=== PATIENT | female | born 1940 | race Asian ===

== ENCOUNTER 2016-11-28 09:01 | Day surgery (SDC) | payer OTHER, MEDICARE ==
[2016-11-28] MEDS ORDERED: PROPOFOL 20 ML ONE ×3 (09:52)
[2016-11-28 09:53] VITALS: BMI 20.5
[2016-11-28 10:49] VITALS: TEMP 97.5
[2016-11-28 12:06] VITALS: BP 135/79; PULSE 59
== END 2016-11-28 12:06 | disposition home or self-care (01) ==
LOC: JASU-ENDO 09:01
PROVIDERS: ATTEND Internal Medicine Gastroenterology
PROC: 0DJD8ZZ Inspection of Lower Intestinal Tract, Via Natural or Artificial Opening Endoscopic (ICD-10-PCS; 2016-11-28)
PROC: 0DJ08ZZ Inspection of Upper Intestinal Tract, Via Natural or Artificial Opening Endoscopic (ICD-10-PCS; principal; 2016-11-28 10:00)
DX: D64.9 Anemia, unspecified (principal); K62.1 Rectal polyp; K57.30 Diverticulosis of large intestine without perforation or abscess without bleeding; K64.8 Other hemorrhoids

== ENCOUNTER 2020-05-05 19:33 | Inpatient (IN) | payer OTHER, MEDICARE ==
[2020-05-05] MEDS ORDERED: SODIUM CHLORIDE 1,000 ML IV SCH (20:15)
[2020-05-05 20:27] LABS: BASO % 1.1 % (0-2.0); EOS % 0.4 % (0-4.5); HEMATOCRIT 28.2 % (32.4-45.2); HEMOGLOBIN 9.7 GM/dl (10.7-15.3); LYMPH % 14.5 % (8-40); MCH 37.3 pg (25.7-33.7); MCHC 34.4 g/dl (32.0-36.0); MEAN CELL VOLUME 108.5 fl (80-96); MONO % 12.2 % (3.8-10.2); NEUT % 71.8 % (42.8-82.8); PLATELET COUNT 248 K/MM3 (134-434); WHITE BLOOD COUNT 5.2 K/mm3 (4.0-10.8)
[2020-05-05 20:31] LABS: MEAN PLT VOLUME 5.6 fl (7.5-11.1)
[2020-05-05 20:33] LABS: BILIRUBIN,TOTAL 0.7 mg/dl (0.2-1); CALCIUM 8.1 mg/dl (8.5-10); CREATININE 1.2 mg/dl (0.55-1.3); POTASSIUM 3.3 mmol/L (3.5-5.1); TOT PROT 6.1 g/dl (6.4-8.2)
[2020-05-05] MEDS ORDERED: POTASSIUM CHLORIDE ORAL LIQUID 20 MEQ/15 ML PO ONE (21:05)
[2020-05-05] MEDS ORDERED: POTASSIUM CHLORIDE ORAL LIQUID 20 MEQ/15 ML ONE (21:07)
[2020-05-05 23:53] LABS: EPITHELIAL CELLS FEW /hpf
[2020-05-06 00:54] VITALS: BMI 20.9
[2020-05-06] MEDS ORDERED: SODIUM CHLORIDE 1,000 ML IV SCH (03:15)
[2020-05-06 09:22] LABS: BASO % 1.4 % (0-2.0); EOS % 0.7 % (0-4.5); HEMATOCRIT 24.6 % (32.4-45.2); HEMOGLOBIN 8.4 GM/dl (10.7-15.3); LYMPH % 23.5 % (8-40); MCH 37.7 pg (25.7-33.7); MCHC 34.3 g/dl (32.0-36.0); MONO % 12.6 % (3.8-10.2); NEUT % 61.8 % (42.8-82.8); PLATELET COUNT 215 K/MM3 (134-434); RBC 2.24 M/mm3 (3.60-5.2); WHITE BLOOD COUNT 5.5 K/mm3 (4.0-10.8)
[2020-05-06 09:38] LABS: ALBUMIN 3.4 g/dl (3.4-5.0); BILIRUBIN,TOTAL 0.7 mg/dl (0.2-1); CALCIUM 8.1 mg/dl (8.5-10); CREATININE 0.9 mg/dl (0.55-1.3); MAGNESIUM 2.1 mg/dL (1.8-2.4); POTASSIUM 3.5 mmol/L (3.5-5.1); TOT PROT 5.2 g/dl (6.4-8.2)
[2020-05-06 09:43] LABS: CHOLESTEROL 156 mg/dl (50-200); HDL CHOLESTEROL 71 mg/dl (40-60); LDL CHOLESTEROL (ONLY DFH) 62 mg/dl (5-100); TRIGLYCERIDES 115 mg/dl (0-150)
[2020-05-06] MEDS: FAMOTIDINE 10 MG TABLET PO SCH ×2 (10:08→21:31)
[2020-05-06] MEDS: predniSONE 5 MG TABLET (UD) PO SCH (10:09)
[2020-05-06] MEDS: IBUPROFEN 600 MG TABLET (FP) PO SCH ×2 (10:09→21:29)
[2020-05-06] MEDS: ASPIRIN 81 MG CHEWABLE TABLETS PO SCH (10:09)
[2020-05-06] MEDS: ASCORBIC ACID 500 MG TABLET (FP) PO SCH (10:10)
[2020-05-06] MEDS: HYDROXYCHLOROQUINE SO4 200 MG TABLET (FP) PO SCH ×2 (10:10→21:31)
[2020-05-06] MEDS: amLODIPine BESYLATE 5 MG TABLET (FP) PO SCH (10:10)
[2020-05-06] MEDS ORDERED: BENZOCAINE/MENTH/CETYLPYRD CL 1 EACH LOZENGE MM PRN (14:32)
[2020-05-06] MEDS ORDERED: ATORVASTATIN CA 10 MG TABLET (FP) PO SCH (22:00)
[2020-05-06] MEDS: guaiFENesin/D-METHORPHAN TAB.ER.12H PO SCH (23:46)
[2020-05-07] MEDS ORDERED: SODIUM CHLORIDE 1,000 ML IV SCH (00:45)
[2020-05-07 08:39] LABS: BASO % 0.9 % (0-2.0); EOS % 1.7 % (0-4.5); HEMATOCRIT 25.9 % (32.4-45.2); HEMOGLOBIN 8.7 GM/dl (10.7-15.3); LYMPH % 24.8 % (8-40); MCHC 33.5 g/dl (32.0-36.0); MEAN CELL VOLUME 110.7 fl (80-96); MONO % 13.7 % (3.8-10.2); NEUT % 58.9 % (42.8-82.8); PLATELET COUNT 200 K/MM3 (134-434); RBC 2.34 M/mm3 (3.60-5.2); RDW 12.2 % (11.6-15.6); WHITE BLOOD COUNT 4.8 K/mm3 (4.0-10.8)
[2020-05-07 08:42] LABS: ALBUMIN 3.5 g/dl (3.4-5.0); BILIRUBIN,TOTAL 0.6 mg/dl (0.2-1); CALCIUM 8.5 mg/dl (8.5-10); CREATININE 0.8 mg/dl (0.55-1.3); MAGNESIUM 1.9 mg/dL (1.8-2.4); POTASSIUM 3.6 mmol/L (3.5-5.1); TOT PROT 5.5 g/dl (6.4-8.2)
[2020-05-07 08:45] LABS: ADD RBC MORPHOLOGY YES; MEAN PLT VOLUME 5.8 fl (7.5-11.1)
[2020-05-07] MEDS: ASCORBIC ACID 500 MG TABLET (FP) PO SCH (09:26)
[2020-05-07] MEDS: ASPIRIN 81 MG CHEWABLE TABLETS PO SCH (09:27)
[2020-05-07] MEDS: IBUPROFEN 600 MG TABLET (FP) PO SCH ×2 (09:27→21:32)
[2020-05-07] MEDS: HYDROXYCHLOROQUINE SO4 200 MG TABLET (FP) PO SCH ×2 (09:27→21:34)
[2020-05-07] MEDS: predniSONE 5 MG TABLET (UD) PO SCH (09:27)
[2020-05-07] MEDS: guaiFENesin/D-METHORPHAN TAB.ER.12H PO SCH ×2 (09:28→21:33)
[2020-05-07] MEDS: amLODIPine BESYLATE 5 MG TABLET (FP) PO SCH (09:28)
[2020-05-07] MEDS: FAMOTIDINE 10 MG TABLET PO SCH ×2 (09:28→21:32)
[2020-05-07 09:48] LABS: ANISOCYTOSIS 1+
[2020-05-07 09:54] LABS: MACROCYTOSIS 1+; PLATELET ESTIMATE ADEQUATE
[2020-05-07] MEDS: SODIUM CHLORIDE 1 GM TABLET PO SCH (12:29)
[2020-05-07] MEDS: POLYETHYLENE GLYCOL 3350 119 GM BTL PO SCH (18:46)
[2020-05-07] MEDS: ENOXAPARIN NA (PORCINE) 40 MG/0.4 ML DISP.SYRIN SQ SCH (18:46)
[2020-05-07] MEDS: ATORVASTATIN CA 80 MG TABLET (FP) PO SCH (21:33)
[2020-05-08] MEDS: ASCORBIC ACID 500 MG TABLET (FP) PO SCH (09:45)
[2020-05-08] MEDS: predniSONE 5 MG TABLET (UD) PO SCH (09:46)
[2020-05-08] MEDS: ACETAMINOPHEN 325 MG TABLET (FP) PO PRN ×2 (09:46→21:37)
[2020-05-08] MEDS: ASPIRIN 81 MG CHEWABLE TABLETS PO SCH (09:46)
[2020-05-08] MEDS: HYDROXYCHLOROQUINE SO4 200 MG TABLET (FP) PO SCH (09:46)
[2020-05-08] MEDS: SODIUM CHLORIDE 1 GM TABLET PO SCH (09:46)
[2020-05-08] MEDS: IBUPROFEN 600 MG TABLET (FP) PO SCH ×2 (09:46→21:37)
[2020-05-08] MEDS: amLODIPine BESYLATE 5 MG TABLET (FP) PO SCH (09:46)
[2020-05-08] MEDS: POLYETHYLENE GLYCOL 3350 119 GM BTL PO SCH (09:47)
[2020-05-08] MEDS: FAMOTIDINE 10 MG TABLET PO SCH (09:47)
[2020-05-08] MEDS: ENOXAPARIN NA (PORCINE) 40 MG/0.4 ML DISP.SYRIN SQ SCH (09:47)
[2020-05-08] MEDS: guaiFENesin/D-METHORPHAN TAB.ER.12H PO SCH (09:53)
[2020-05-08 13:09] LABS: CALCIUM 8.3 mg/dl (8.5-10); CREATININE 0.8 mg/dl (0.55-1.3); POTASSIUM 3.2 mmol/L (3.5-5.1)
[2020-05-08 13:21] LABS: BASO % 0.5 % (0-2.0); EOS % 0.7 % (0-4.5); HEMATOCRIT 26.3 % (32.4-45.2); HEMOGLOBIN 9.1 GM/dl (10.7-15.3); LYMPH % 7.3 % (8-40); MCH 37.9 pg (25.7-33.7); MCHC 34.5 g/dl (32.0-36.0); MONO % 7.9 % (3.8-10.2); NEUT % 83.6 % (42.8-82.8); PLATELET COUNT 212 K/MM3 (134-434); RBC 2.39 M/mm3 (3.60-5.2); RDW 12.2 % (11.6-15.6); WHITE BLOOD COUNT 7.2 K/mm3 (4.0-10.8)
[2020-05-08 13:22] LABS: MEAN PLT VOLUME 5.4 fl (7.5-11.1)
[2020-05-08 13:25] LABS: ALBUMIN 3.9 g/dl (3.4-5.0); BILIRUBIN,TOTAL 0.7 mg/dl (0.2-1); CALCIUM 8.3 mg/dl (8.5-10); CREATININE 0.8 mg/dl (0.55-1.3); MAGNESIUM 1.7 mg/dL (1.8-2.4); POTASSIUM 3.2 mmol/L (3.5-5.1)
[2020-05-08] MEDS ORDERED: POTASSIUM CHLORIDE TABS 20 MEQ TABLET.ER (FP) PO ONE (16:50)
[2020-05-08] MEDS: ATORVASTATIN CA 80 MG TABLET (FP) PO SCH (21:36)
[2020-05-09] MEDS: guaiFENesin/D-METHORPHAN TAB.ER.12H PO SCH ×2 (02:36→11:40)
[2020-05-09] MEDS: HYDROXYCHLOROQUINE SO4 200 MG TABLET (FP) PO SCH ×2 (02:36→11:38)
[2020-05-09 07:52] LABS: BASO % 1.1 % (0-2.0); EOS % 1.4 % (0-4.5); HEMATOCRIT 24.1 % (32.4-45.2); HEMOGLOBIN 8.3 GM/dl (10.7-15.3); LYMPH % 27.1 % (8-40); MCH 37.5 pg (25.7-33.7); MCHC 34.2 g/dl (32.0-36.0); MEAN CELL VOLUME 109.6 fl (80-96); MONO % 16.3 % (3.8-10.2); NEUT % 54.1 % (42.8-82.8); PLATELET COUNT 207 K/MM3 (134-434); RDW 12.1 % (11.6-15.6); WHITE BLOOD COUNT 4.5 K/mm3 (4.0-10.8)
[2020-05-09 07:54] LABS: MEAN PLT VOLUME 5.6 fl (7.5-11.1)
[2020-05-09 08:07] LABS: ALBUMIN 3.4 g/dl (3.4-5.0); BILIRUBIN,TOTAL 0.6 mg/dl (0.2-1); CALCIUM 8.7 mg/dl (8.5-10); CREATININE 0.9 mg/dl (0.55-1.3); MAGNESIUM 1.6 mg/dL (1.8-2.4); POTASSIUM 4.6 mmol/L (3.5-5.1); TOT PROT 5.4 g/dl (6.4-8.2)
[2020-05-09] MEDS ORDERED: MAGNESIUM SULF 50% (8.12 MEQ/2 ML-1 GM VIAL) IVPB ONE (08:22)
[2020-05-09] MEDS ORDERED: MAGNESIUM SULFATE IN WATER 2 GM/50 ML IVPB IVPB ONE (08:30)
[2020-05-09] MEDS ORDERED: FAMOTIDINE 10 MG TABLET PO SCH (10:00)
[2020-05-09 10:11] VITALS: BP 153/57; PULSE 100; TEMP 98.1
[2020-05-09] MEDS ORDERED: MAGNESIUM OXIDE 400 MG TABLET (FP) PO ONE (11:00)
[2020-05-09] MEDS: ASPIRIN 81 MG CHEWABLE TABLETS PO SCH (11:38)
[2020-05-09] MEDS: IBUPROFEN 600 MG TABLET (FP) PO SCH (11:38)
[2020-05-09] MEDS: predniSONE 5 MG TABLET (UD) PO SCH (11:38)
[2020-05-09] MEDS: amLODIPine BESYLATE 5 MG TABLET (FP) PO SCH (11:38)
[2020-05-09] MEDS: ASCORBIC ACID 500 MG TABLET (FP) PO SCH (11:39)
[2020-05-09] MEDS: ENOXAPARIN NA (PORCINE) 40 MG/0.4 ML DISP.SYRIN SQ SCH (11:39)
[2020-05-09] MEDS: SODIUM CHLORIDE 1 GM TABLET PO SCH (11:39)
[2020-05-09] MEDS: ACETAMINOPHEN 325 MG TABLET (FP) PO PRN (11:40)
[2020-05-09] MEDS: POLYETHYLENE GLYCOL 3350 119 GM BTL PO SCH (11:40)
[2020-05-09] MEDS ORDERED: SODIUM CHLORIDE 1 GM TABLET PO SCH (22:00)
== END 2020-05-09 15:16 | disposition home or self-care (01) | DRG 641 ==
LOC: FER 19:33 → FM/S 23:54 → UNDOADMIN 23:54
PROVIDERS: ADMIT Internal Medicine; ATTEND Nurse Practitioner Acute Care
DX: E87.0 Hyperosmolality and hypernatremia (principal); I24.8 Other forms of acute ischemic heart disease; I50.32 Chronic diastolic (congestive) heart failure; I10 Essential (primary) hypertension; E78.5 Hyperlipidemia, unspecified; M06.9 Rheumatoid arthritis, unspecified; D64.9 Anemia, unspecified; I25.10 Atherosclerotic heart disease of native coronary artery without angina pectoris; I65.23 Occlusion and stenosis of bilateral carotid arteries; R26.9 Unspecified abnormalities of gait and mobility; T50.2X5A Adverse effect of carbonic-anhydrase inhibitors, benzothiadiazides and other diuretics, initial encounter; W19.XXXA Unspecified fall, initial encounter
CPT/HCPCS: 36415; 70450-TC; 70544-TC; 70547-TC; 70551-TC; 71045-TC-FY; 80048; 80053; 80061; 81003; 81015; 82550; 82553; 82607; 82728; 82747; 83540; 83550; 83735; 84295; 84300; 84484; 84540; 85014; 85025; 93005; 93880-TC; 97116-GP; 99285-25; C9803; U0003

== ENCOUNTER 2022-09-08 15:24 | Emergency (ER) | payer OTHER, MEDICARE ==
[2022-09-08 15:50] VITALS: BP 156/84; PULSE 68; RESP 18; TEMP 98.5; BMI 20.4
[2022-09-08] MEDS ORDERED: ACETAMINOPHEN 325 MG TABLET (FP) PO ONE (15:59)
== END 2022-09-08 17:15 | disposition left against medical advice (07) ==
LOC: FER 15:24
DX: S00.93XA Contusion of unspecified part of head, initial encounter (principal); M25.642 Stiffness of left hand, not elsewhere classified; M43.6 Torticollis; W01.0XXA Fall on same level from slipping, tripping and stumbling without subsequent striking against object, initial encounter; Y93.01 Activity, walking, marching and hiking; Y92.9 Unspecified place or not applicable
CPT/HCPCS: 70450-TC; 72125-TC; 73502-TC-LT-FY; 99284-25

== ENCOUNTER 2022-10-12 20:17 | Inpatient (IN) | payer OTHER, MEDICARE ==
[2022-10-12] MEDS ORDERED: ONDANSETRON 4 MG/2 ML VIAL IVPUSH ONE (20:32)
[2022-10-12] MEDS ORDERED: SODIUM CHLORIDE 1,000 ML IV SCH (20:45)
[2022-10-12] MEDS ORDERED: ONDANSETRON 4 MG/2 ML VIAL ONE (20:59)
[2022-10-12 21:09] LABS: HEMATOCRIT 32.7 % (32.4-45.2); HEMOGLOBIN 11.2 G/dL (10.7-15.3); MCH 39.7 pg (25.7-33.7); MCHC 34.4 g/dl (32.0-36.0); MEAN CELL VOLUME 115.7 fl (80-96); MEAN PLT VOLUME 6.2 fl (7.5-11.1); PLATELET COUNT 147.2 10^3/uL (134-434); RBC 2.83 10^6/uL (3.60-5.2); RDW 13.3 % (11.6-15.6); WHITE BLOOD COUNT 7.2 10^3/uL (4.0-10.8)
[2022-10-12 21:25] LABS: ALBUMIN 3.8 g/dl (3.4-5.0); BLOOD UREA NITROGEN 58.6 mg/dl (7-18); CALCIUM 9.1 mg/dl (8.5-10.1); CREATININE 1.4 mg/dl (0.6-1.3); MAGNESIUM 2.2 mg/dL (1.8-2.4); POTASSIUM 3.7 mmol/L (3.5-5.1); SGOT/AST 22.9 U/L (15-37); SGPT/ALT 20.1 U/L (7-52); TOT PROT 5.9 g/dl (6.4-8.2)
[2022-10-12] MEDS ORDERED: morphine CARPU-JECT 2 MG/1 ML DISP.SYRIN IVPUSH ONE (23:24)
[2022-10-12] MEDS ORDERED: morphine SULFATE 4 MG/ML VIAL ONE (23:29)
[2022-10-12] MEDS ORDERED: ACETAMINOPHEN 1000 MG/100 ML BAG IVPB ONE (23:39)
[2022-10-13 01:09] LABS: EPI CELLS >36 /uL (0-25.1); HYALINE CASTS 1 /uL (0-3.1); PH,URINE >= 9.0 (5.0-8.0); URINE APPEARANCE CLOUDY; URINE BACTERIA 3604 /uL (0-1359); URINE BILIRUBIN NEGATIVE (NEGATIVE); URINE COLOR YELLOW; URINE GLUCOSE (UA) NEGATIVE (NEGATIVE); URINE KETONE NEGATIVE (NEGATIVE); URINE LEUK ESTERASE 2+ (NEGATIVE); URINE NITRITE POSITIVE (NEGATIVE); URINE PROTEIN 1+ (NEGATIVE); URINE RBC 20 /uL (0-23.9); URINE UROBILINOGEN 0.2 mg/dL (0.2-1.0); URINE WBC 27 /uL (0-25.8)
[2022-10-13] MEDS ORDERED: CEFTRIAXONE 1,000 MG in DEXTROSE 5%-WATER - 50 ML IVPB ONE (02:36)
[2022-10-13] MEDS ORDERED: cefTRIAXone SODIUM 1 GM VIAL ONE (02:37)
[2022-10-13] MEDS ORDERED: ONDANSETRON 4 MG/2 ML VIAL IVPUSH PRN (03:00)
[2022-10-13] MEDS ORDERED: ACETAMINOPHEN 1000 MG/100 ML BAG IVPB PRN ×2 (07:16→07:29)
[2022-10-13 09:32] LABS: ALBUMIN 3.3 g/dl (3.4-5.0); BASO % 0.5 % (0-2.0); BLOOD UREA NITROGEN 50.5 mg/dl (7-18); CALCIUM 8.4 mg/dl (8.5-10.1); CREATININE 1.3 mg/dl (0.6-1.3); EOS % 0.5 % (0-4.5); HEMOGLOBIN 9.6 GM/dL (10.7-15.3); LYMPH % 18.3 % (8-40); MCH 38.5 pg (25.7-33.7); MCHC 34.1 g/dl (32.0-36.0); MEAN CELL VOLUME 112.7 fl (80-96); MEAN PLT VOLUME 6.2 fl (7.5-11.1); MONO % 10.5 % (3.8-10.2); NEUT % 70.2 % (42.8-82.8); PHOSPHOROUS 3.91 (2.5-4.9); PLATELET COUNT 151 10^3/uL (134-434); POTASSIUM 3.6 mmol/L (3.5-5.1); RBC 2.49 M/mm3 (3.60-5.2); RDW 13.3 % (11.6-15.6); SGOT/AST 20.7 U/L (15-37); SGPT/ALT 18.2 U/L (7-52); TOT PROT 5.1 g/dl (6.4-8.2); WHITE BLOOD COUNT 7.2 K/mm3 (4.0-10.0)
[2022-10-13 12:08] LABS: BILIRUBIN,TOTAL 0.7 mg/dL (0.2-1)
[2022-10-13 12:15] LABS: ANISOCYTOSIS 3+; MACROCYTOSIS 3+
[2022-10-13] MEDS: SODIUM BICARBONATE 650 MG TABLET PO SCH (12:59)
[2022-10-13] MEDS: SODIUM CHLORIDE 1,000 ML IV SCH (14:30)
[2022-10-14 09:19] LABS: ALBUMIN 3.6 g/dl (3.4-5.0); BLOOD UREA NITROGEN 34.3 mg/dl (7-18); CALCIUM 8.9 mg/dl (8.5-10.1); CREATININE 1.1 mg/dl (0.6-1.3); MAGNESIUM 1.8 mg/dL (1.8-2.4); PHOSPHOROUS 3.31 (2.5-4.9); POTASSIUM 3.2 mmol/L (3.5-5.1); SGOT/AST 32.8 U/L (15-37); SGPT/ALT 19.3 U/L (7-52); TOT PROT 5.6 g/dl (6.4-8.2)
[2022-10-14] MEDS: SODIUM BICARBONATE 650 MG TABLET PO SCH (09:36)
[2022-10-14] MEDS ORDERED: POTASSIUM CHLORIDE TABS 10 MEQ TABLET.ER (FP) PO ONE (10:00)
[2022-10-14] MEDS: CEFTRIAXONE 1 GM in DEXTROSE 5%-WATER - 50 ML IVPB SCH (11:14)
[2022-10-14] MEDS: PANTOPRAZOLE SODIUM 40 MG VIAL IVPUSH SCH (11:16)
[2022-10-14 12:17] LABS: BILIRUBIN,TOTAL 0.8 mg/dL (0.2-1)
[2022-10-14] MEDS: SODIUM CHLORIDE 1,000 ML IV SCH (15:54)
[2022-10-14 22:08] LABS: IG G QN IMMUNOGLOBULIN 841 mg/dL (586-1602); IGG SUBCLASS 1 568 mg/dL (248-810); IGG SUBCLASS 2 92 mg/dL (130-555); IGG SUBCLASS 3 29 mg/dL (15-102)
[2022-10-15] MEDS: CEFTRIAXONE 1 GM in DEXTROSE 5%-WATER - 50 ML IVPB SCH (09:13)
[2022-10-15] MEDS: SODIUM BICARBONATE 650 MG TABLET PO SCH (09:14)
[2022-10-15] MEDS: PANTOPRAZOLE SODIUM 40 MG VIAL IVPUSH SCH (09:14)
[2022-10-15 09:20] LABS: BASO % 0.4 % (0-2.0); EOS % 1.4 % (0-4.5); HEMATOCRIT 24.9 % (32.4-45.2); HEMOGLOBIN 8.6 GM/dL (10.7-15.3); LYMPH % 18.2 % (8-40); MCH 38.1 pg (25.7-33.7); MCHC 34.4 g/dl (32.0-36.0); MEAN PLT VOLUME 6.4 fl (7.5-11.1); MONO % 13.4 % (3.8-10.2); NEUT % 66.6 % (42.8-82.8); PLATELET COUNT 121 10^3/uL (134-434); RBC 2.24 M/mm3 (3.60-5.2); RDW 12.8 % (11.6-15.6); WHITE BLOOD COUNT 6.1 K/mm3 (4.0-10.0)
[2022-10-15 09:27] LABS: ALBUMIN 2.9 g/dl (3.4-5.0); ALK PHOS 40 U/L (45-117); ANION GAP 10 MMOL/L (8-16); BLOOD UREA NITROGEN 21.8 mg/dl (7-18); CALCIUM 8.4 mg/dl (8.5-10.1); CHLORIDE 108 mmol/L (98-107); CO2 17 mmol/L (21-32); CREATININE 0.9 mg/dl (0.6-1.3); GLUCOSE,RANDOM 49 mg/dl (74-106); POTASSIUM 3.4 mmol/L (3.5-5.1); SGOT/AST 33.4 U/L (15-37); SGPT/ALT 16.6 U/L (7-52); SODIUM 135 mmol/L (136-145); TOT PROT 4.6 g/dl (6.4-8.2)
[2022-10-15 09:57] LABS: BILIRUBIN,TOTAL 0.8 mg/dL (0.2-1)
[2022-10-15] MEDS ORDERED: POTASSIUM CHLORIDE TABS 10 MEQ TABLET.ER (FP) PO ONE (10:00)
[2022-10-16 11:34] LABS: HEMATOCRIT 29.9 % (32.4-45.2); HEMOGLOBIN 10.3 G/dL (10.7-15.3); MCH 39.8 pg (25.7-33.7); MCHC 34.5 g/dl (32.0-36.0); MEAN CELL VOLUME 115.3 fl (80-96); MEAN PLT VOLUME 6.2 fl (7.5-11.1); PLATELET COUNT 122.7 10^3/uL (134-434); RBC 2.59 10^6/uL (3.60-5.2); RDW 12.7 % (11.6-15.6); WHITE BLOOD COUNT 5.1 10^3/uL (4.0-10.8)
[2022-10-16 11:42] LABS: ALBUMIN 3.5 g/dl (3.4-5.0); BLOOD UREA NITROGEN 18.5 mg/dl (7-18); CALCIUM 9.2 mg/dl (8.5-10.1); POTASSIUM 3.9 mmol/L (3.5-5.1); SGOT/AST 35.4 U/L (15-37); SGPT/ALT 21.1 U/L (7-52); TOT PROT 5.7 g/dl (6.4-8.2)
[2022-10-16] MEDS: SODIUM BICARBONATE 650 MG TABLET PO SCH (11:54)
[2022-10-16] MEDS: PANTOPRAZOLE 40 MG TABLET PO SCH (11:54)
[2022-10-16] MEDS: CEPHALEXIN MONOHYDRATE 500 MG CAPSULE (UD) PO SCH ×2 (11:55→22:09)
[2022-10-16 14:07] LABS: BILIRUBIN,TOTAL 0.8 mg/dL (0.2-1)
[2022-10-16] MEDS: PANTOPRAZOLE SODIUM 40 MG VIAL IVPUSH SCH (18:48)
[2022-10-16] MEDS: CEFTRIAXONE 1 GM in DEXTROSE 5%-WATER - 50 ML IVPB SCH (18:48)
[2022-10-16] MEDS ORDERED: COSYNTROPIN 0.25 MG VIAL IVPUSH ONE (19:45)
[2022-10-16] MEDS: HYDROCORTISONE SOD SUCCINATE 100 MG/2 ML VIAL IVPB SCH (22:09)
[2022-10-17] MEDS ORDERED: PANTOPRAZOLE 40 MG TABLET PO SCH (10:00)
[2022-10-17] MEDS ORDERED: predniSONE 5 MG TABLET (UD) PO SCH (10:00)
[2022-10-17] MEDS: PANTOPRAZOLE 40 MG TABLET PO SCH (10:42)
[2022-10-17] MEDS: SODIUM BICARBONATE 650 MG TABLET PO SCH (10:42)
[2022-10-17] MEDS: CEPHALEXIN MONOHYDRATE 500 MG CAPSULE (UD) PO SCH ×2 (10:42→22:25)
[2022-10-17] MEDS: HYDROCORTISONE SOD SUCCINATE 100 MG/2 ML VIAL IVPB SCH ×2 (10:42→23:10)
[2022-10-17 13:42] LABS: ALBUMIN 3.5 g/dl (3.4-5.0); BLOOD UREA NITROGEN 28.3 mg/dl (7-18); CALCIUM 8.9 mg/dl (8.5-10.1); CREATININE 1.1 mg/dl (0.6-1.3); POTASSIUM 4.9 mmol/L (3.5-5.1); SGOT/AST 30.5 U/L (15-37); SGPT/ALT 19.9 U/L (7-52); TOT PROT 5.8 g/dl (6.4-8.2)
[2022-10-17 15:56] LABS: HEMATOCRIT 31.7 % (32.4-45.2); MCH 38.5 pg (25.7-33.7); MCHC 34.6 g/dl (32.0-36.0); MEAN CELL VOLUME 111.1 fl (80-96); MEAN PLT VOLUME 6.8 fl (7.5-11.1); PLATELET COUNT 154 10^3/uL (134-434); RBC 2.85 M/mm3 (3.60-5.2); RDW 12.9 % (11.6-15.6); WHITE BLOOD COUNT 5.5 K/mm3 (4.0-10.0)
[2022-10-18] MEDS: HYDROCORTISONE SOD SUCCINATE 100 MG/2 ML VIAL IVPB SCH ×2 (10:07→21:26)
[2022-10-18] MEDS: SODIUM BICARBONATE 650 MG TABLET PO SCH ×3 (10:08→21:26)
[2022-10-18] MEDS: PANTOPRAZOLE 40 MG TABLET PO SCH (10:08)
[2022-10-18] MEDS: CEPHALEXIN MONOHYDRATE 500 MG CAPSULE (UD) PO SCH ×2 (10:08→21:26)
[2022-10-18 11:19] LABS: BILIRUBIN,TOTAL 0.7 mg/dL (0.2-1)
[2022-10-18] MEDS: SODIUM CHLORIDE 1 GM TABLET PO SCH (16:23)
[2022-10-19 09:46] LABS: ALBUMIN 3.1 g/dl (3.4-5.0); BLOOD UREA NITROGEN 38.4 mg/dl (7-18); CALCIUM 8.6 mg/dl (8.5-10.1); CREATININE 1.4 mg/dl (0.6-1.3); POTASSIUM 3.6 mmol/L (3.5-5.1); SGOT/AST 24.4 U/L (15-37)
[2022-10-19] MEDS: SODIUM CHLORIDE 1 GM TABLET PO SCH (09:46)
[2022-10-19] MEDS: PANTOPRAZOLE 40 MG TABLET PO SCH (09:46)
[2022-10-19] MEDS: SODIUM BICARBONATE 650 MG TABLET PO SCH ×2 (09:46→21:37)
[2022-10-19] MEDS: CEPHALEXIN MONOHYDRATE 500 MG CAPSULE (UD) PO SCH ×2 (09:46→21:37)
[2022-10-19] MEDS: HYDROCORTISONE SOD SUCCINATE 100 MG/2 ML VIAL IVPB SCH (09:46)
[2022-10-19 10:17] LABS: HEMATOCRIT 22.5 % (32.4-45.2); HEMOGLOBIN 7.9 GM/dL (10.7-15.3); LYMPH % 6.6 % (8-40); MCHC 35.2 g/dl (32.0-36.0); MEAN CELL VOLUME 108.1 fl (80-96); MEAN PLT VOLUME 6.8 fl (7.5-11.1); MONO % 4.5 % (3.8-10.2); NEUT % 88.9 % (42.8-82.8); PLATELET COUNT 157 10^3/uL (134-434); RBC 2.08 M/mm3 (3.60-5.2); RDW 12.6 % (11.6-15.6); WHITE BLOOD COUNT 5.8 K/mm3 (4.0-10.0)
[2022-10-19 10:23] LABS: BILIRUBIN,TOTAL 0.3 mg/dL (0.2-1)
[2022-10-19 11:17] LABS: ANISOCYTOSIS 2+; MACROCYTOSIS 2+; OVALOCYTE 1+
[2022-10-20] MEDS: PANTOPRAZOLE 40 MG TABLET PO SCH (09:10)
[2022-10-20] MEDS: CEPHALEXIN MONOHYDRATE 500 MG CAPSULE (UD) PO SCH ×2 (09:10→21:11)
[2022-10-20] MEDS: SODIUM CHLORIDE 1 GM TABLET PO SCH (09:11)
[2022-10-20] MEDS: SODIUM BICARBONATE 650 MG TABLET PO SCH (09:11)
[2022-10-20] MEDS ORDERED: predniSONE 5 MG TABLET (UD) PO SCH (10:00)
[2022-10-20 10:28] LABS: ALBUMIN 3.2 g/dl (3.4-5.0); CALCIUM 8.8 mg/dl (8.5-10.1); CREATININE 1.4 mg/dl (0.6-1.3); POTASSIUM 3.9 mmol/L (3.5-5.1); SGOT/AST 23.4 U/L (15-37); SGPT/ALT 22.7 U/L (7-52); TOT PROT 5.3 g/dl (6.4-8.2)
[2022-10-20 11:45] LABS: BASO % 0.1 % (0-2.0); EOS % 0.1 % (0-4.5); HEMATOCRIT 24.7 % (32.4-45.2); HEMOGLOBIN 8.5 GM/dL (10.7-15.3); LYMPH % 14.4 % (8-40); MCH 37.5 pg (25.7-33.7); MCHC 34.4 g/dl (32.0-36.0); MEAN CELL VOLUME 109.1 fl (80-96); MEAN PLT VOLUME 6.7 fl (7.5-11.1); MONO % 10.9 % (3.8-10.2); NEUT % 74.5 % (42.8-82.8); PLATELET COUNT 175 10^3/uL (134-434); RBC 2.26 M/mm3 (3.60-5.2); RDW 12.8 % (11.6-15.6); WHITE BLOOD COUNT 5.9 K/mm3 (4.0-10.0)
[2022-10-20 11:56] LABS: BILIRUBIN,TOTAL 0.4 mg/dL (0.2-1)
[2022-10-20 12:44] LABS: CHOLESTEROL 149 mg/dl (50-200); HDL CHOLESTEROL 33 mg/dl (40-60); LDL CHOLESTEROL (ONLY DFH) 97 mg/dl (5-100)
[2022-10-21 08:03] LABS: CALCIUM 8.5 mg/dl (8.5-10.1); CREATININE 1.4 mg/dl (0.6-1.3); POTASSIUM 3.5 mmol/L (3.5-5.1); SGOT/AST 28.2 U/L (15-37); SGPT/ALT 34.2 U/L (7-52); TOT PROT 4.9 g/dl (6.4-8.2)
[2022-10-21] MEDS: CEPHALEXIN MONOHYDRATE 500 MG CAPSULE (UD) PO SCH ×2 (09:10→21:51)
[2022-10-21] MEDS: predniSONE 10 MG TABLET (UD) PO SCH (09:10)
[2022-10-21] MEDS: SODIUM CHLORIDE 1 GM TABLET PO SCH (09:11)
[2022-10-21] MEDS: PANTOPRAZOLE 40 MG TABLET PO SCH (09:12)
[2022-10-21 10:25] LABS: BILIRUBIN,TOTAL 0.3 mg/dL (0.2-1)
[2022-10-21 11:18] LABS: BASO % 0.2 % (0-2.0); EOS % 0.8 % (0-4.5); HEMOGLOBIN 8.3 GM/dL (10.7-15.3); LYMPH % 21.8 % (8-40); MCH 37.8 pg (25.7-33.7); MCHC 34.8 g/dl (32.0-36.0); MEAN CELL VOLUME 108.6 fl (80-96); MEAN PLT VOLUME 6.6 fl (7.5-11.1); MONO % 12.7 % (3.8-10.2); NEUT % 64.5 % (42.8-82.8); PLATELET COUNT 189 10^3/uL (134-434); RBC 2.21 M/mm3 (3.60-5.2); RDW 12.3 % (11.6-15.6); WHITE BLOOD COUNT 5.1 K/mm3 (4.0-10.0)
[2022-10-21 16:04] VITALS: BMI 20.9
[2022-10-21] MEDS ORDERED: ATORVASTATIN CA 10 MG TABLET (FP) PO SCH (22:00)
[2022-10-22 00:15] VITALS: RESP 18
[2022-10-22] MEDS ORDERED: amLODIPine BESYLATE 2.5 MG TABLET (FP) PO SCH (10:00)
[2022-10-22] MEDS ORDERED: ASPIRIN COATED 81 MG TABLET.EC PO SCH (10:00)
[2022-10-22] MEDS ORDERED: ENOXAPARIN NA (PORCINE) 30 MG/0.3 ML DISP.SYRIN SQ SCH (10:00)
[2022-10-22] MEDS ORDERED: ENOXAPARIN NA (PORCINE) 40 MG/0.4 ML DISP.SYRIN SQ SCH (10:00)
[2022-10-22] MEDS ORDERED: FAMOTIDINE 20 MG TABLET PO SCH (10:00)
[2022-10-22] MEDS: SODIUM CHLORIDE 1 GM TABLET PO SCH (10:31)
[2022-10-22] MEDS: CEPHALEXIN MONOHYDRATE 500 MG CAPSULE (UD) PO SCH (10:34)
[2022-10-22] MEDS: PANTOPRAZOLE 40 MG TABLET PO SCH (10:35)
[2022-10-22] MEDS: predniSONE 10 MG TABLET (UD) PO SCH (10:36)
[2022-10-22 12:08] VITALS: BP 136/68; PULSE 68; TEMP 98
== END 2022-10-22 13:06 | DRG 439 ==
LOC: FER 20:17 → FM/S 10-13 02:37
PROVIDERS: ADMIT Internal Medicine; ATTEND Internal Medicine
DX: K85.30 Drug induced acute pancreatitis without necrosis or infection (principal); E27.40 Unspecified adrenocortical insufficiency; E87.1 Hypo-osmolality and hyponatremia; I24.8 Other forms of acute ischemic heart disease; I13.0 Hypertensive heart and chronic kidney disease with heart failure and stage 1 through stage 4 chronic kidney disease, or unspecified chronic kidney disease; I50.32 Chronic diastolic (congestive) heart failure; N39.0 Urinary tract infection, site not specified; T36.4X5A Adverse effect of tetracyclines, initial encounter; E78.5 Hyperlipidemia, unspecified; I25.119 Atherosclerotic heart disease of native coronary artery with unspecified angina pectoris; K21.9 Gastro-esophageal reflux disease without esophagitis; D64.9 Anemia, unspecified; M06.9 Rheumatoid arthritis, unspecified; M10.9 Gout, unspecified; R26.89 Other abnormalities of gait and mobility; M51.36 Other intervertebral disc degeneration, lumbar region; I08.1 Rheumatic disorders of both mitral and tricuspid valves; N18.9 Chronic kidney disease, unspecified; M54.16 Radiculopathy, lumbar region; B96.4 Proteus (mirabilis) (morganii) as the cause of diseases classified elsewhere; R77.8 Other specified abnormalities of plasma proteins; M48.02 Spinal stenosis, cervical region
CPT/HCPCS: 36415; 70450-TC; 71045-TC-FY; 74176-TC; 74181-TC; 76705-TC; 80053; 80061; 81003; 82436; 82533; 82550; 82784; 82787; 82962; 83605; 83690; 83735; 83883; 83930; 83935; 84100; 84133; 84155; 84165; 84300; 84484; 85025; 85027; 87086; 87186; 87635; 93005; 97116-GP; 97162-GP; 99285-25; J0834

== ENCOUNTER 2023-04-02 16:29 | Emergency (ER) | payer OTHER, MEDICARE ==
[2023-04-02 17:14] VITALS: TEMP 97.9; BMI 19.8
[2023-04-02] MEDS: SODIUM CHLORIDE 1,000 ML IV SCH (19:00)
[2023-04-02 19:17] LABS: HEMATOCRIT 31.6 % (32.4-45.2); HEMOGLOBIN 10.8 G/dL (10.7-15.3); MCH 38.4 pg (25.7-33.7); MCHC 34.2 g/dl (32.0-36.0); MEAN CELL VOLUME 112.6 fl (80-96); MEAN PLT VOLUME 6.5 fl (7.5-11.1); PLATELET COUNT 202.1 10^3/uL (134-434); RBC 2.81 10^6/uL (3.60-5.2); RDW 12.9 % (11.6-15.6); WHITE BLOOD COUNT 5.9 10^3/uL (4.0-10.8)
[2023-04-02 19:22] LABS: ANISOCYTOSIS 1+; MACROCYTOSIS 2+; PLATELET ESTIMATE ADEQUATE
[2023-04-02 19:33] LABS: ALBUMIN 4.4 g/dl (3.4-5.0); BILIRUBIN,TOTAL 0.6 mg/dl (0.2-1); CALCIUM 9.1 mg/dl (8.5-10.1); CREATININE 1.5 mg/dl (0.6-1.3); POTASSIUM 4.7 mmol/L (3.5-5.1); TOT PROT 6.8 g/dl (6.4-8.2)
[2023-04-02 22:20] VITALS: BP 175/92; PULSE 77; RESP 18
== END 2023-04-02 23:56 | disposition short-term general hospital (02) ==
LOC: FER 16:29
DX: R53.1 Weakness (principal); S12.000A Unspecified displaced fracture of first cervical vertebra, initial encounter for closed fracture; E87.1 Hypo-osmolality and hyponatremia; R79.89 Other specified abnormal findings of blood chemistry; M54.2 Cervicalgia; W18.39XA Other fall on same level, initial encounter; Z20.822 Contact with and (suspected) exposure to COVID-19
CPT/HCPCS: 0241U-QW; 36415; 71045-TC-FY; 72125-TC; 80053; 81003; 84484; 85027; 93005; 99285-25

== ENCOUNTER 2023-04-22 19:34 | Inpatient (IN) | payer OTHER, MEDICARE ==
[2023-04-22 21:07] LABS: HEMATOCRIT 28.1 % (32.4-45.2); HEMOGLOBIN 9.5 G/dL (10.7-15.3); MCH 37.4 pg (25.7-33.7); MCHC 33.6 g/dl (32.0-36.0); MEAN PLT VOLUME 6.5 fl (7.5-11.1); PLATELET COUNT 224.9 10^3/uL (134-434); RBC 2.53 10^6/uL (3.60-5.2); RDW 15.7 % (11.6-15.6)
[2023-04-22 21:12] LABS: INR 1.11 (0.83-1.09); PROTHROMBIN TIME (PATIENT) 12.9 SEC (9.7-13.0)
[2023-04-22 21:15] LABS: ACTIVATED PTT 31.8 SECONDS (25.2-36.5); EPITHELIAL CELLS 0-5 /hpf
[2023-04-22 21:16] LABS: ANISOCYTOSIS 1+; MACROCYTOSIS 2+; PLATELET ESTIMATE ADEQUATE
[2023-04-22 21:22] LABS: ALBUMIN 3.9 g/dl (3.4-5.0); BILIRUBIN,TOTAL 0.5 mg/dl (0.2-1); CREATININE 1.1 mg/dl (0.6-1.3); POTASSIUM 4.8 mmol/L (3.5-5.1); TOT PROT 6.2 g/dl (6.4-8.2)
[2023-04-22] MEDS ORDERED: cefTRIAXone SODIUM 1 GM VIAL ONE (22:09)
[2023-04-22] MEDS: SODIUM CHLORIDE 1,000 ML IV STA (22:17)
[2023-04-22] MEDS: CEFTRIAXONE 1,000 MG in DEXTROSE 5%-WATER - 50 ML IVPB ONE (22:18)
[2023-04-23] MEDS: LACTATED RINGERS SOLUTION 1,000 ML/1,000 ML INFUS.BAG IV STA (00:38)
[2023-04-23 00:49] VITALS: BMI 20.9
[2023-04-23] MEDS: ACETAMINOPHEN 325 MG TABLET (FP) PO PRN (04:11)
[2023-04-23 08:51] LABS: CALCIUM 9.1 mg/dl (8.5-10.1); MAGNESIUM 1.6 mg/dL (1.8-2.4); PHOSPHOROUS 3.5 (2.5-4.9); POTASSIUM 4.6 mmol/L (3.5-5.1)
[2023-04-23 09:34] VITALS: BP 130/72; PULSE 82; RESP 23; TEMP 99
[2023-04-23] MEDS: FAMOTIDINE 10 MG TABLET PO SCH (09:45)
[2023-04-23] MEDS: CHOLECALCIFEROL (VIT D3) 1,000 UNIT (25 MCG) TABLET PO SCH (09:45)
[2023-04-23] MEDS: LACTOBACILLUS ACIDOPHILUS 1 TABLET PO SCH (09:45)
[2023-04-23] MEDS: SODIUM CHLORIDE 1 GM TABLET PO SCH (09:45)
[2023-04-23] MEDS: ASPIRIN COATED 81 MG TABLET.EC PO SCH (09:45)
[2023-04-23] MEDS: predniSONE 5 MG TABLET (UD) PO SCH (09:46)
[2023-04-23] MEDS: amLODIPine BESYLATE 2.5 MG TABLET (FP) PO SCH (09:46)
[2023-04-23] MEDS: FOLIC ACID 1 MG TABLET (FP) PO SCH (09:46)
[2023-04-23] MEDS: LEVOTHYROXINE NA 25 MCG TABLET (FP) PO SCH (09:46)
[2023-04-23] MEDS: CYANOCOBALAMIN 1,000 MCG TABLET (FP) PO SCH (09:46)
[2023-04-23] MEDS: MAGNESIUM OXIDE 400 MG TABLET (FP) PO ONE (09:48)
[2023-04-23 11:14] LABS: BASO % 0.6 % (0-2.0); EOS % 0.4 % (0-4.5); HEMATOCRIT 28.2 % (32.4-45.2); HEMOGLOBIN 9.3 GM/dL (10.7-15.3); MCHC 33.2 g/dl (32.0-36.0); MEAN CELL VOLUME 108.7 fl (80-96); MEAN PLT VOLUME 5.9 fl (7.5-11.1); MONO % 8.3 % (3.8-10.2); NEUT % 77.7 % (42.8-82.8); PLATELET COUNT 301 10^3/uL (134-434); RBC 2.59 M/mm3 (3.60-5.2); RDW 16.9 % (11.6-15.6)
[2023-04-23] MEDS ORDERED: ATORVASTATIN CA 10 MG TABLET (FP) PO SCH (22:00)
[2023-04-23] MEDS ORDERED: CEFTRIAXONE 1 GM in DEXTROSE 5%-WATER - 50 ML IVPB SCH (22:00)
== END 2023-04-23 12:28 | DRG 690 ==
LOC: FER 19:34 → FM/S 23:38 → OBSVTOIN 04-23 07:44
PROVIDERS: ADMIT Internal Medicine; ATTEND Internal Medicine
DX: N39.0 Urinary tract infection, site not specified (principal); I13.0 Hypertensive heart and chronic kidney disease with heart failure and stage 1 through stage 4 chronic kidney disease, or unspecified chronic kidney disease; E87.1 Hypo-osmolality and hyponatremia; I25.10 Atherosclerotic heart disease of native coronary artery without angina pectoris; M10.9 Gout, unspecified; E78.5 Hyperlipidemia, unspecified; I50.9 Heart failure, unspecified; M06.9 Rheumatoid arthritis, unspecified; K21.9 Gastro-esophageal reflux disease without esophagitis; E03.9 Hypothyroidism, unspecified; D64.9 Anemia, unspecified; N18.30 Chronic kidney disease, stage 3 unspecified; R73.9 Hyperglycemia, unspecified
CPT/HCPCS: 0241U-QW; 36415; 71045-TC-FY; 80048; 80053; 81003; 81015; 82533; 83690; 83735; 84100; 84439; 84443; 84484; 85025; 85610; 85730; 86850; 86900; 86901; 87086; 87186; 93005; 97116-GP; 97162-GP; 99285-25; G0378

== ENCOUNTER 2023-12-17 11:20 | Emergency (ER) | payer OTHER, MEDICARE ==
[2023-12-17 11:31] VITALS: BP 125/74; PULSE 88; RESP 16; TEMP 98.1; BMI 20.2
[2023-12-17 13:53] LABS: HEMATOCRIT 31.7 % (32.4-45.2); HEMOGLOBIN 10.6 G/dL (10.7-15.3); MCH 37.8 pg (25.7-33.7); MCHC 33.3 g/dl (32.0-36.0); MEAN CELL VOLUME 113.2 fl (80-96); MEAN PLT VOLUME 6.6 fl (7.5-11.1); PLATELET COUNT 181.2 10^3/uL (134-434); RDW 13.2 % (11.6-15.6)
[2023-12-17 13:59] LABS: PLATELET ESTIMATE ADEQUATE
[2023-12-17 14:11] LABS: ALBUMIN 4.1 g/dl (3.4-5.0); BILIRUBIN,TOTAL 0.5 mg/dl (0.2-1); CALCIUM 9.2 mg/dl (8.5-10.1); CREATININE 1.4 mg/dl (0.6-1.3); POTASSIUM 4.2 mmol/L (3.5-5.1); TOT PROT 6.4 g/dl (6.4-8.2)
== END 2023-12-17 15:14 | disposition home or self-care (01) ==
LOC: FER 11:20
DX: R05.9 Cough, unspecified (principal); Z20.822 Contact with and (suspected) exposure to COVID-19
CPT/HCPCS: 0241U-QW; 36415; 71045-TC-FY; 80053; 85027; 93005; 99285-25

== ENCOUNTER 2024-01-19 18:49 | Inpatient (IN) | payer OTHER, MEDICARE ==
[2024-01-19 19:56] LABS: HEMOGLOBIN 12.8 G/dL (10.7-15.3); MCH 37.8 pg (25.7-33.7); MCHC 33.7 g/dl (32.0-36.0); MEAN CELL VOLUME 112.1 fl (80-96); MEAN PLT VOLUME 6.9 fl (7.5-11.1); PLATELET COUNT 187.1 10^3/uL (134-434); RBC 3.39 10^6/uL (3.60-5.2); RDW 13.4 % (11.6-15.6); WHITE BLOOD COUNT 16.2 10^3/uL (4.0-10.8)
[2024-01-19] MEDS ORDERED: ACETAMINOPHEN INJECTION 100 ML ONE (20:19)
[2024-01-19] MEDS: SODIUM CHLORIDE 1,000 ML IV ONE (20:20)
[2024-01-19] MEDS: ACETAMINOPHEN 1000 MG/100 ML BAG IVPB ONE (20:23)
[2024-01-19 20:44] LABS: ALBUMIN 4.2 g/dl (3.4-5.0); BILIRUBIN,TOTAL 0.5 mg/dl (0.2-1); CALCIUM 9.9 mg/dl (8.5-10.1); CREATININE 1.4 mg/dl (0.6-1.3); MAGNESIUM 2.3 mg/dL (1.8-2.4); PHOSPHOROUS 4.2 (2.5-4.9); POTASSIUM 4.5 mmol/L (3.5-5.1); TOT PROT 6.6 g/dl (6.4-8.2)
[2024-01-19 22:15] LABS: LACTIC ACID 2.3 mmol/L (0.4-2.0)
[2024-01-20] MEDS: ASPIRIN 81 MG CHEWABLE TABLETS PO ONE (01:55)
[2024-01-20] MEDS: LEVOTHYROXINE NA 25 MCG TABLET (FP) PO SCH (06:03)
[2024-01-20 08:57] LABS: CALCIUM 9.1 mg/dl (8.5-10.1); CREATININE 1.1 mg/dl (0.6-1.3); POTASSIUM 3.9 mmol/L (3.5-5.1)
[2024-01-20] MEDS: FAMOTIDINE 10 MG TABLET PO SCH (09:45)
[2024-01-20] MEDS: amLODIPine BESYLATE 2.5 MG TABLET (FP) PO SCH (09:45)
[2024-01-20] MEDS: ASPIRIN COATED 81 MG TABLET.EC PO SCH (09:45)
[2024-01-20 09:58] LABS: BASO % 0.1 % (0-2.0); EOS % 0.2 % (0-4.5); HEMATOCRIT 35.1 % (32.4-45.2); HEMOGLOBIN 11.8 GM/dL (10.7-15.3); LYMPH % 8.1 % (8-40); MCH 37.3 pg (25.7-33.7); MCHC 33.6 g/dl (32.0-36.0); MEAN PLT VOLUME 6.6 fl (7.5-11.1); MONO % 4.6 % (3.8-10.2); PLATELET COUNT 187 10^3/uL (134-434); RBC 3.16 M/mm3 (3.60-5.2); RDW 13.2 % (11.6-15.6); WHITE BLOOD COUNT 11.9 K/mm3 (4.0-10.0)
[2024-01-20 11:17] LABS: ANISOCYTOSIS 1+; MACROCYTOSIS 2+
[2024-01-20] MEDS ORDERED: ACETAMINOPHEN 1000 MG/100 ML BAG IVPB PRN (11:29)
[2024-01-20] MEDS: SODIUM CHLORIDE 1,000 ML IV SCH (12:08)
[2024-01-20] MEDS: CEFTRIAXONE 1 G/50 ML PREMIX 50 ML IVPB SCH (12:08)
[2024-01-20] MEDS: ACETAMINOPHEN 1000 MG/100 ML BAG IVPB PRN (15:49)
[2024-01-20] MEDS: ATORVASTATIN CA 10 MG TABLET (FP) PO SCH (21:37)
[2024-01-21 08:48] LABS: BILIRUBIN,TOTAL 0.7 mg/dl (0.2-1); CALCIUM 8.1 mg/dl (8.5-10.1); CREATININE 1.4 mg/dl (0.6-1.3); POTASSIUM 3.7 mmol/L (3.5-5.1); TOT PROT 4.8 g/dl (6.4-8.2)
[2024-01-21 09:43] LABS: BASO % 0.3 % (0-2.0); EOS % 0.5 % (0-4.5); HEMATOCRIT 30.9 % (32.4-45.2); HEMOGLOBIN 10.1 GM/dL (10.7-15.3); MCH 36.9 pg (25.7-33.7); MCHC 32.6 g/dl (32.0-36.0); MEAN PLT VOLUME 6.4 fl (7.5-11.1); MONO % 9.7 % (3.8-10.2); NEUT % 75.5 % (42.8-82.8); PLATELET COUNT 157 10^3/uL (134-434); RBC 2.73 M/mm3 (3.60-5.2); RDW 12.9 % (11.6-15.6); WHITE BLOOD COUNT 12.8 K/mm3 (4.0-10.0)
[2024-01-21] MEDS: FOLIC ACID 1 MG TABLET (FP) PO SCH (10:11)
[2024-01-21] MEDS: CYANOCOBALAMIN 1,000 MCG TABLET (FP) PO SCH (10:11)
[2024-01-21] MEDS: SODIUM CHLORIDE 0.9% 250 ML INFUS.BAG IV ONE (11:08)
[2024-01-21] MEDS: ACETAMINOPHEN 1000 MG/100 ML BAG IVPB PRN (18:32)
[2024-01-21] MEDS: HEPARIN NA (PORCINE) 5,000 UNITS/ML 1ML VIAL SQ SCH (21:22)
[2024-01-22 08:52] LABS: ALBUMIN 2.9 g/dl (3.4-5.0); BILIRUBIN,TOTAL 0.5 mg/dl (0.2-1); CALCIUM 7.8 mg/dl (8.5-10.1); CREATININE 1.2 mg/dl (0.6-1.3); POTASSIUM 3.2 mmol/L (3.5-5.1); TOT PROT 4.7 g/dl (6.4-8.2)
[2024-01-22] MEDS: amLODIPine BESYLATE 2.5 MG TABLET (FP) PO SCH (10:04)
[2024-01-22] MEDS: CEFTRIAXONE 2 GM-D5W BAG 2 GM/50 ML BAG IVPB SCH (10:05)
[2024-01-22] MEDS: POTASSIUM CHLORIDE ORAL LIQUID 20 MEQ/15 ML PO ONE (10:15)
[2024-01-22 11:51] LABS: BASO % 0.4 % (0-2.0); EOS % 1.3 % (0-4.5); HEMATOCRIT 27.3 % (32.4-45.2); HEMOGLOBIN 9.3 GM/dL (10.7-15.3); LYMPH % 13.9 % (8-40); MCH 37.8 pg (25.7-33.7); MCHC 33.9 g/dl (32.0-36.0); MEAN CELL VOLUME 111.6 fl (80-96); MEAN PLT VOLUME 6.6 fl (7.5-11.1); MONO % 9.7 % (3.8-10.2); NEUT % 74.7 % (42.8-82.8); PLATELET COUNT 136 10^3/uL (134-434); RBC 2.45 M/mm3 (3.60-5.2); RDW 12.7 % (11.6-15.6); WHITE BLOOD COUNT 6.1 K/mm3 (4.0-10.0)
[2024-01-22 15:21] VITALS: BMI 23.1
[2024-01-22] MEDS: predniSONE 5 MG TABLET (UD) PO SCH (17:23)
[2024-01-23 09:02] LABS: ALBUMIN 2.8 g/dl (3.4-5.0); BILIRUBIN,TOTAL 0.7 mg/dl (0.2-1); CALCIUM 8.2 mg/dl (8.5-10.1); POTASSIUM 4.3 mmol/L (3.5-5.1); TOT PROT 4.7 g/dl (6.4-8.2)
[2024-01-23 13:05] LABS: BASO % 0.5 % (0-2.0); EOS % 0.4 % (0-4.5); HEMATOCRIT 25.8 % (32.4-45.2); HEMOGLOBIN 8.5 GM/dL (10.7-15.3); LYMPH % 9.4 % (8-40); MCH 36.9 pg (25.7-33.7); MEAN PLT VOLUME 6.8 fl (7.5-11.1); MONO % 9.4 % (3.8-10.2); NEUT % 80.3 % (42.8-82.8); PLATELET COUNT 142 10^3/uL (134-434); RDW 12.4 % (11.6-15.6); WHITE BLOOD COUNT 5.8 K/mm3 (4.0-10.0)
[2024-01-23] MEDS: ACETAMINOPHEN 500 MG TABLET (FP) PO ONE (21:30)
[2024-01-23] MEDS: amLODIPine BESYLATE 2.5 MG TABLET (FP) PO ONE (22:28)
[2024-01-24] MEDS ORDERED: DOCUSATE SODIUM 50 MG/5 ML ML *BULK BOTTLE PO SCH (22:00)
[2024-01-25] MEDS: DOCUSATE NA 100 MG/10 ML UNIT-DOSE CUPS PO SCH (07:55)
[2024-01-25 09:55] VITALS: BP 143/91; PULSE 78; RESP 18; TEMP 98.1
[2024-01-25] MEDS: ACETAMINOPHEN 325 MG TABLET (FP) PO PRN (11:51)
== END 2024-01-25 13:34 | disposition home or self-care (01) | DRG 392 ==
LOC: FER 18:49 → FM/S 01-20 01:26 → INTOOBSV 01-20 01:26 → OBSVTOIN 01-20 01:35
PROVIDERS: ADMIT Internal Medicine
DX: R10.11 Right upper quadrant pain (principal); E27.40 Unspecified adrenocortical insufficiency; I24.89 Other forms of acute ischemic heart disease; E87.20 Acidosis, unspecified; I13.0 Hypertensive heart and chronic kidney disease with heart failure and stage 1 through stage 4 chronic kidney disease, or unspecified chronic kidney disease; N18.30 Chronic kidney disease, stage 3 unspecified; M48.02 Spinal stenosis, cervical region; G95.20 Unspecified cord compression; M43.16 Spondylolisthesis, lumbar region; E78.5 Hyperlipidemia, unspecified; M10.9 Gout, unspecified; M06.9 Rheumatoid arthritis, unspecified; K21.9 Gastro-esophageal reflux disease without esophagitis; E03.9 Hypothyroidism, unspecified; D64.9 Anemia, unspecified; R79.89 Other specified abnormal findings of blood chemistry; I50.9 Heart failure, unspecified
CPT/HCPCS: 36415; 71045-TC-FY; 72141-TC; 72148-TC; 74176-TC; 76705-TC; 80048; 80053; 80061; 81003; 81015; 82550; 82607; 82746; 83036; 83605; 83690; 83735; 84100; 84484; 85025; 85027; 85651; 86140; 87040; 87086; 87635; 93005; 97116-GP; 97162-GP; 99285-25; G0378; J0131; J1644

== ENCOUNTER 2024-06-01 16:06 | Observation (INO) | payer OTHER, MEDICARE ==
[2024-06-01 17:04] LABS: INR 1.01 (0.83-1.09); PROTHROMBIN TIME (PATIENT) 11.2 SEC (9.7-13.0)
[2024-06-01] MEDS ORDERED: ACETAMINOPHEN INJECTION 100 ML ONE (17:04)
[2024-06-01 17:07] LABS: ACTIVATED PTT 32.3 SECONDS (25.2-36.5)
[2024-06-01 17:07] LABS: HEMATOCRIT 31.8 % (34.1-44.9); HEMOGLOBIN 10.7 g/dL (11.2-15.7); MCHC 33.6 g/dl (32.2-35.5); MEAN CELL VOLUME 110.4 fl (79.4-94.8); MEAN PLT VOLUME 8.4 fl (9.4-12.3); PLATELET COUNT 196 x10^3/uL (182-369); RDW 11.9 % (12.5-17.0)
[2024-06-01 17:16] LABS: ALBUMIN 3.9 g/dl (3.4-5.0); BILIRUBIN,TOTAL 0.5 mg/dl (0.2-1); CREATININE 1.6 mg/dl (0.6-1.3); MAGNESIUM 1.9 mg/dL (1.8-2.4); POTASSIUM 4.5 mmol/L (3.5-5.1); TOT PROT 6.6 g/dl (6.4-8.2)
[2024-06-01] MEDS: SODIUM CHLORIDE 0.9% 500 ML INFUS.BAG IV ONE (17:20)
[2024-06-01] MEDS: ACETAMINOPHEN 1000 MG/100 ML BAG IVPB ONE (17:20)
[2024-06-01] MEDS ORDERED: DOCUSATE SODIUM 100 MG CAPSULE (FP) PO PRN (21:25)
[2024-06-01] MEDS ORDERED: ACETAMINOPHEN 325 MG TABLET (FP) PO PRN (21:25)
[2024-06-02 01:13] VITALS: BMI 20.2
[2024-06-02] MEDS: LEVOTHYROXINE NA 25 MCG TABLET (FP) PO SCH (06:42)
[2024-06-02 07:54] LABS: ABSOLUTE IMMATURE GRANULOCYTES 0.07 x10^3/uL (0.0-0.031); BASOPHILS # 0.04 x10^3/uL (0.01-0.08); EOSINOPHIL % 0.5 % (0.7-5.8); EOSINOPHILS # 0.03 x10^3/uL (0.04-0.36); HEMATOCRIT 32.3 % (34.1-44.9); MCHC 34.1 g/dl (32.2-35.5); MEAN CELL VOLUME 110.2 fl (79.4-94.8); MEAN PLT VOLUME 8.3 fl (9.4-12.3); MONOCYTE # 0.99 x10^3/uL (0.24-0.86); MONOCYTE % 15.5 % (4.7-12.5); PLATELET COUNT 199 x10^3/uL (182-369); RDW 11.8 % (12.5-17.0)
[2024-06-02 08:33] LABS: CALCIUM 9.4 mg/dl (8.5-10.1); CREATININE 1.2 mg/dl (0.6-1.3); POTASSIUM 3.6 mmol/L (3.5-5.1)
[2024-06-02] MEDS ORDERED: MECLIZINE HCL 12.5 MG TABLET PO PRN (09:05)
[2024-06-02] MEDS: FOLIC ACID 1 MG TABLET (FP) PO SCH (09:40)
[2024-06-02] MEDS: ASPIRIN COATED 81 MG TABLET.EC PO SCH (09:40)
[2024-06-02] MEDS: predniSONE 5 MG TABLET (UD) PO SCH (09:40)
[2024-06-02] MEDS: amLODIPine BESYLATE 2.5 MG TABLET (FP) PO SCH (09:40)
[2024-06-02] MEDS: FLUTICASONE PROP 0.05% 16 GM NASAL SPRAY NS SCH (09:42)
[2024-06-02] MEDS: ACETAMINOPHEN 325 MG TABLET (FP) PO PRN (11:11)
[2024-06-02 15:12] VITALS: BP 117/66; PULSE 79; RESP 20; TEMP 97.7
[2024-06-02] MEDS ORDERED: ATORVASTATIN CA 10 MG TABLET (FP) PO SCH (22:00)
== END 2024-06-02 15:00 | disposition home or self-care (01) ==
LOC: FER 16:06 → FM/S 18:39
PROVIDERS: ADMIT Internal Medicine; ATTEND Internal Medicine
PROC: 3E033NZ Introduction of Analgesics, Hypnotics, Sedatives into Peripheral Vein, Percutaneous Approach (ICD-10-PCS; principal; 2024-06-01)
PROC: 3E0337Z Introduction of Electrolytic and Water Balance Substance into Peripheral Vein, Percutaneous Approach (ICD-10-PCS; 2024-06-01)
DX: E87.1 Hypo-osmolality and hyponatremia (principal); I12.9 Hypertensive chronic kidney disease with stage 1 through stage 4 chronic kidney disease, or unspecified chronic kidney disease; I47.10 Supraventricular tachycardia, unspecified; N18.30 Chronic kidney disease, stage 3 unspecified; E78.5 Hyperlipidemia, unspecified; E03.9 Hypothyroidism, unspecified; R01.1 Cardiac murmur, unspecified; I07.1 Rheumatic tricuspid insufficiency; K21.9 Gastro-esophageal reflux disease without esophagitis; M06.9 Rheumatoid arthritis, unspecified
CPT/HCPCS: 0241U-QW; 36415; 70450-TC; 71045-TC-FY; 80048; 80053; 81003; 81015; 82607; 82728; 82746; 83540; 83550; 83735; 83880; 84439; 84443; 84484; 85025; 85610; 85730; 86850; 86900; 86901; 87086; 87186; 93005; 97116-GP; 97162-GP; 99285-25; G0378; J0131